=== PATIENT | female | born 2000 | race Caucasian/White ===

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

== ENCOUNTER 2019-05-08 06:00 | Inpatient (IN) ==
[2019-05-08] MEDS ORDERED: DEXTROSE 5%-LACTATED RINGERS 1,000 ML IV PRN (08:34)
[2019-05-08] MEDS ORDERED: RINGER'S SOLUTION,LACTATED 1,000 ML IV ONE (08:34)
[2019-05-08] MEDS ORDERED: OXYTOCIN/DEXTROSE 5%-WATER 30 UNITS/500 ML BAG IV ONE ×2 (08:34→17:33)
[2019-05-08] MEDS ORDERED: ONDANSETRON 4 MG TAB.RAPDIS PO PRN (08:34)
--- NOTE | 2019-05-08 08:50 | HP ---
Chief Complaint - Chief Complaint Date of Service: 05/08/19 Time of Service: 08:41 Chief Complaint: contractions, LOF History of Present Illness: 18 yo at 37 6/7 weeks presents with complaint of LOF and contractions of increased intensity since discharged last pm from clinic status. Nitrazine was equivical (had gel last pm), floor bag palpated, no vaginal pooling, and pad dry after 2 hours of walking. This complicated by anemia, h/o depression, threatened PTL - received steroids on 04/22 and 04/23. Rh positive Rubella immune GBS negative Medical History (Updated 04/08/19 @ 15:05 by Juventino Beebe DO) Anemia (Acute) Onset Date: 02/26/19 w/ Seasonal allergies Onset Date: Unknown Wears glasses Onset Date: Unknown , spontaneous Onset Date: ~07/15/18 approx. 9 weeks Cellulitis Onset Date: 12/27/12 Left middle finger Left knee pain Onset Date: Unknown Varicella without mention of complication Onset Date: Unknown Surgical History: Surgical History (Updated 10/03/18 @ 15:21 by Carlton Echeverria RN) H/O left knee surgery Onset Date: ~2014 [facility] Family History: Family History (Updated 10/03/18 @ 15:24 by Carlton Echeverria RN) Mother Colitis Factor V Leiden Father MVA (motor vehicle accident) Social History: (Last Reviewed 05/08/19 @ 08:46 by Juventino Beebe DO) Social History: adopted: No halfway: No Marital status: Single household members: none number of children: 0 current occupational status: employed current occupation: AIRCRAFT INSPECTOR Highest education level completed: some college, no degree Sexually Active: Yes Service: No Tobacco: Smoking Status: Never smoker how long ago did patient quit smokin09/07/18 Alcohol: alcohol intake: never Substance Use: substance use type: does not use Dietary Habits: caffeine: No Exercise: Physical activity type: none Review Of Systems (GEN) - Review of Systems Generalized/Overall Review: Present: Fatigue EENTM: Present: No Symptoms Reported Respiratory: Present: No Symptoms Reported Cardiac: Present: No Symptoms Reported Abdominal: Present: Other - contraction pain Genitourinary: Present: Other - LOF x 2 last pm/early this am Musculoskeletal: Present: No Symptoms Reported Neurological: Present: No Symptoms Reported Skin: Present: No Symptoms Reported Endocrine: Present: No Symptoms Reported Immunizations: IMMUNIZATION HX Immunizations Up to Date Yes History of Influenza Vaccine No Hx Pneumococcal Vaccination No Allergies/Adverse Reactions: Allergies Allergy/AdvReac Type Severity Reaction Status Date / Time No Known Allergies Allergy Verified 05/08/19 06:47 Home Medications: HOME MEDICATIONS Vits96/Iron Fum/Folic [ S] 1 tab PO DAILY 02/05/19 [Last Taken 05/06/19] ferrous sulfate 325 mg (65 mg iron) tablet 325 mg PO DAILY #30 tab 02/26/19 [Last Taken 05/06/19] Ascorbic Acid [Vitamin C] 500 mg PO DAILY 03/19/19 [Last Taken 05/06/19] Exam - Exam Constitutional: Present: Oriented x3, Cooperative, Other - appears tired ENT Exam: Present: hearing grossly normal Breasts: Present: Exam deferred Respiratory: Present: lungs clear, no respiratory distress Cardiovascular/Chest: Present: regular rate, rhythm, no edema Abdomen: Present: soft, nontender, no rebound tenderness, other - gravid /Rectal: Present: Other - 3-4/80/-2 Extremity: Present: no pedal edema, no calf tenderness Skin Exam: Present: normal color, warm/dry, no cyanosis Lymphatic: Present: no adenopathy Neurologic: Present: normal mood/affect, oriented x 3 Appearance: Present: appropriate appearance, appropriate insight Eye contact: Present: cooperative, good eye contact Thoughts: Present: normal thought pattern Diagnostic Studies: NST reactive Assessment/Plan - Assessment/Plan (1) Labor established Assessment: Admit for routine management of labor. Epidural PRN. Problem: Acute (2) Anemia Problem: Acute Qualifiers: Anemia type: iron deficiency Iron deficiency anemia type: inadequate dietary iron intake Qualified Code(s): D50.8 - Other iron deficiency anemias (3) Depression Problem: Inactive Qualifiers: Depression Type: unspecified Qualified Code(s): F32.9 - Major depressive disorder, single episode, unspecified
[2019-05-08 10:08] LABS: Cocaine Ur Negative (NEGATIVE); Urine Barbiturate Negative (NEGATIVE); Urine Benzodiazepines Negative (NEGATIVE); Urine Opiates Negative (NEGATIVE); Urine PCP Negative (NEGATIVE); Urine THC Negative (NEGATIVE)
--- NOTE | 2019-05-08 12:15 | PN ---
Progess Note - Interim Date: 05/08/19 Time: 12:12 Narrative: 05/08/19 12:12 Patient becoming more uncomfortable with contractions Vital signs stable. Pitocin at 6 mu/min. FHT: 150 baseline, reassuring contractions q 2-3 min Cervix: 4/75/0, AROM-clear Impression: Intrauterine at 37 6/7 weeks in labor Plan: Continue present plan
[2019-05-08] MEDS ORDERED: NALOXONE HCL 1 MG/1 ML SYRG IV PRN (12:55)
[2019-05-08] MEDS ORDERED: BUPIVACAINE HCL/0.9 % NACL/PF 250 ML EP PRN (12:55)
[2019-05-08] MEDS ORDERED: ONDANSETRON HCL/PF 2 MG/ML VIAL IV PRN (12:55)
[2019-05-08] MEDS ORDERED: BUPIVACAINE HCL/PF 30 ML VIAL EP SCH (13:00)
--- NOTE | 2019-05-08 13:12 | ANES ---
Anesthesia Pre Procedure Eval Vitals/Labs: Last Vital Signs Temp 36.2 C 05/08/19 09:00 Pulse 76 05/08/19 09:00 Resp 20 05/08/19 09:00 BP 133/87 05/08/19 09:00 Pulse Ox 98 05/08/19 09:00 HOME MEDICATIONS Vits96/Iron Fum/Folic [ S] 1 tab PO DAILY 02/05/19 [Last Taken 05/08/19 04:00] ferrous sulfate 325 mg (65 mg iron) tablet 325 mg PO DAILY #30 tab 02/26/19 [Last Taken 05/06/19] Ascorbic Acid [Vitamin C] 500 mg PO DAILY 03/19/19 [Last Taken 05/06/19] Allergies/Adverse Reactions: Allergies Allergy/AdvReac Type Severity Reaction Status Date / Time No Known Allergies Allergy Verified 05/08/19 06:47 - Planned Procedure Planned Procedure: ACTIVE LABOR Medication List Reviewed:: Yes Allergies Verified: Yes Medical History (Updated 05/08/19 @ 08:50 by Juventino Beebe DO) Anemia (Acute) Onset Date: 02/26/19 w/ Seasonal allergies Onset Date: Unknown Wears glasses Onset Date: Unknown , spontaneous Onset Date: ~07/15/18 approx. 9 weeks Cellulitis Onset Date: 12/27/12 Left middle finger Left knee pain Onset Date: Unknown Varicella without mention of complication Onset Date: Unknown Surgical History (Updated 10/03/18 @ 15:21 by Carlton Echeverria RN) H/O left knee surgery Onset Date: ~2014 [facility] Family History (Updated 10/03/18 @ 15:24 by Carlton Echeverria RN) Mother Colitis Factor V Leiden Father MVA (motor vehicle accident) - Anesthesia Assessment and Plan ASA Class: PS, II Anesthesia Type Plan: Epidural
--- NOTE | 2019-05-08 13:27 | ANES ---
Anesthesia Procedure Note Procedure Note: ANESTHESIA PROCEDURE NOTE Date of Procedure: 05/08/2019. Time of procedure: 1315. Performed by: Tomy Ortega CRNA Beam House Inspector: None. Preprocedure diagnosis: Active labor. Post procedure diagnosis: Same. Procedure: Insertion of labor epidural. Indications: The patient is a 18-year-old female in active labor requesting labor epidural for pain management. Findings: See below. Details of the procedure: The patient was placed in a sitting position. DuraPrep as well as Betadine swabs X3 was applied to the patient's back. Patient was then draped in a sterile fashion. Lidocaine 1% was infiltrated to the skin and subcutaneous tissues at the level of the L3-4 interspace. The epidural space was identified using a 18-gauge Tuohy needle with [id number] technique. Epidural catheter was inserted to a depth of 11 centimeters at skin. Negative test dose was elicited using 3 mL of 1.5% preservative-free lidocaine plus epinephrine 1 200,000. The epidural catheter was then taped and secured in place. A loading dose of 8 mL of 0.25% preservative-free bupivacaine was administered to the epidural catheter after negative aspiration for blood and CSF. EBL: Minimal. Fluids: N/A. Specimen: N/A. Post procedure condition: The patient tolerated the procedure well. No complications were noted. Thank you for this consultation. Tomy Ortega CRNA
--- NOTE | 2019-05-08 13:27 | ANES ---
Post Anesthesia Assessment - Vital Signs Vitals: Last Vital Signs Temp 36.2 C 05/08/19 09:00 Pulse 76 05/08/19 09:00 Resp 20 05/08/19 09:00 BP 133/87 05/08/19 09:00 Pulse Ox 98 05/08/19 09:00 Airway Patency: Normal - Mental Status Level Of Consciousness: Awake - N/V Assessment Nausea/Vomiting Presence: None Dehydration:: No
[2019-05-08] MEDS ORDERED: IBUPROFEN 800 MG TABLET PO PRN (17:33)
[2019-05-08] MEDS ORDERED: HYDROCORTISONE 30 APPL TUBE TP PRN (17:33)
[2019-05-08] MEDS ORDERED: BENZOCAINE/MENTHOL 81 SPRAY CAN TP PRN (17:33)
[2019-05-08] MEDS ORDERED: oxyCODONE HCL/ACETAMINOPHEN 1 TAB TABLET PO PRN (17:33)
[2019-05-08] MEDS ORDERED: SENNOSIDES 8.6 MG TABLET PO PRN (17:33)
[2019-05-08] MEDS ORDERED: GLYCERIN/WITCH HAZEL LEAF 40 APPL BOX TP PRN (17:33)
[2019-05-08] MEDS ORDERED: BISACODYL 10 MG SUPP.RECT RC PRN (17:33)
--- NOTE | 2019-05-08 17:35 | OR ---
Operative Report - Dictated Report Narrative: Spontaneous vaginal delivery of vigorously crying viable female at 1705 on 05/08/2019 with Apgars 9 and 9, weighing 3601 g in LOUIE position. Cord clamping delayed approximately 1 minute Placenta delivered complete, intact, with three vessel cord Estimated blood loss: Less than 50 ml Anesthesia: Epidural Lacerations: None History for MU History for MU Definition: * The number of deliveries resulting in a live the patient experienced prior to current hospitalization * The previous delivery of live twins or any live multiple gestation is considered one live event. *If primagravida or nulliparous is documented select zero for the number of previous live births. Live Events: Live Events: 0
[2019-05-08] MEDS: IBUPROFEN 800 MG TABLET PO PRN (19:31)
[2019-05-08] MEDS: DOCUSATE SODIUM 100 MG CAPSULE PO SCH (21:54)
[2019-05-09] MEDS: IBUPROFEN 800 MG TABLET PO PRN ×3 (03:26→21:27)
--- NOTE | 2019-05-09 08:45 | PN ---
Subjective - Date and Time Seen Date: 05/09/19 Time: 08:43 Objective - Vitals Vitals: Last Vital Signs Temp 37.2 C 05/09/19 00:30 Pulse 71 05/09/19 00:30 Resp 16 05/09/19 00:30 BP 107/63 05/09/19 00:30 Pulse Ox 97 05/09/19 00:30 Patient denies complaints. Lochia wnl abdomen - soft, nontender Uterus -firm, at umbilicus - 1 no calf tenderness Impression: day #1 - s/p spontaneous vaginal delivery. Plan: Continue routine care Cauti Physician Documentation - Urinary Catheter Management Urethral ([place]) Date of Insertion: 05/08/19 Time of Insertion: 14:00 Assessment/Plan - Problems/Diagnosis (1) Labor established Problem: Acute (2) Anemia Problem: Acute Qualifiers: Anemia type: iron deficiency Iron deficiency anemia type: inadequate dietary iron intake Qualified Code(s): D50.8 - Other iron deficiency anemias (3) Depression Problem: Inactive Qualifiers: Depression Type: unspecified Qualified Code(s): F32.9 - Major depressive disorder, single episode, unspecified
[2019-05-09] MEDS: DOCUSATE SODIUM 100 MG CAPSULE PO SCH ×2 (08:46→21:26)
[2019-05-10 07:51] VITALS: BP 122/87
[2019-05-10] MEDS: DOCUSATE SODIUM 100 MG CAPSULE PO SCH (09:46)
[2019-05-10] MEDS: IBUPROFEN 800 MG TABLET PO PRN (09:46)
--- NOTE | 2019-05-10 11:40 | PN ---
Subjective - Date and Time Seen Date: 05/10/19 Time: 11:37 Objective - Vitals Vitals: Last Vital Signs Temp 36.7 C 05/10/19 06:41 Pulse 70 05/10/19 06:41 Resp 18 05/10/19 06:41 BP 122/87 05/10/19 06:41 Pulse Ox 99 05/10/19 06:41 Patient denies complaints. Bottlefeeding Lochia wnl abdomen - soft, nontender Uterus -firm, at umbilicus - 2 no calf tenderness Impression: day #2 - s/p spontaneous vaginal delivery. Plan: Routine discharge instructions Cauti Physician Documentation - Urinary Catheter Management Urethral ([place]) Date of Insertion: 05/08/19 Time of Insertion: 14:00 Assessment/Plan - Problems/Diagnosis (1) Labor established Problem: Acute (2) Anemia Problem: Acute Qualifiers: Anemia type: iron deficiency Iron deficiency anemia type: inadequate dietary iron intake Qualified Code(s): D50.8 - Other iron deficiency anemias (3) Depression Problem: Inactive Qualifiers: Depression Type: unspecified Qualified Code(s): F32.9 - Major depressive disorder, single episode, unspecified
== END 2019-05-10 12:00 | disposition home or self-care (01) | DRG 807 ==
LOC: OBCLINIC 06:00 → OB 08:21 → MS 05-09 08:17
PROVIDERS: ADMIT Obstetrics & Gynecology; ATTEND Obstetrics & Gynecology
CPT/HCPCS: 59025; 80307